=== PATIENT | male | born 1940 | race Caucasian/White ===

== ENCOUNTER 2018-12-14 22:50 | Inpatient (IN) | payer MEDICARE ==
[~2018-12-14] VITALS: Ht 182.9 cm; Wt 81.6 kg
[~2018-12-14 22:50] MED LIST: ALUM1POW3 PO; AMLO10TA7 PO; ATEN25TA PO; CHOL20004 PO; HYDR12.5 PO; IRBE75TA11 PO; LUTE1CAP3 PO; MAGN64TA9 PO; METF750T PO; MULT1CAP34 PO; OMEG1CAP55 PO; PERI2TAB2 PO; ROSU5TAB PO; UBID100C13 PO
--- NOTE | 2018-12-14 23:46 | NUR ---
DR. DELANEY AT BEDSIDE FOR MSE.
[2018-12-15] MEDS ORDERED: IPRATROPIUM BROMIDE 0.5 MG/2.5 ML NEBU NEB ONE
[2018-12-15] MEDS ORDERED: ALBUTEROL SULFATE 2.5 MG/3 ML NEBU NEB ONE
[2018-12-15] MEDS ORDERED: ACETYLCYSTEINE 10% 4ML VIAL NEB ONE
[2018-12-15 00:17] LABS: BASOPHILS % (AUTO) 0.9 % (0.0-2.0); EOSINOPHILS % (AUTO) 0.6 % (0.0-7.0); HEMATOCRIT 37.3 % (36.7-47.1); HEMOGLOBIN 12.5 g/dL (12.5-16.3); LYMPHOCYTES # (AUTO) 0.6 K/uL (20.0-40.0); LYMPHOCYTES % (AUTO) 11.7 % (20.5-51.5); MEAN CORPUSCULAR HEMOGLOBIN 29.4 uug (23.8-33.4); MEAN CORPUSCULAR HGB CONC 34 g/dL (32.5-36.3); MEAN CORPUSCULAR VOLUME 87.5 fL (73.0-96.2); MONOCYTES # (AUTO) 0.5 K/uL (2.0-10.0); MONOCYTES % (AUTO) 9.6 % (0.0-11.0); NEUTROPHILS # (AUTO) 4.2 K/uL (1.8-8.9); NEUTROPHILS % (AUTO) 77.2 % (38.5-71.5); PLATELET COUNT (AUTO) 178 K/uL (152-348); RED BLOOD CELL COUNT(AUTO) 4.26 MIL/uL (4.06-5.63); WHITE BLOOD COUNT (AUTO) 5.4 K/uL (3.6-10.2)
[2018-12-15] MEDS ORDERED: ACETYLCYSTEINE 10% 4ML VIAL ONE (00:26)
[2018-12-15] MEDS ORDERED: IPRATROPIUM BROMIDE 0.5 MG/2.5 ML NEBU ONE (00:27)
[2018-12-15] MEDS ORDERED: ALBUTEROL SULFATE 2.5 MG/3 ML NEBU ONE (00:27)
[2018-12-15 00:50] LABS: POTASSIUM 4.5 mmol/L (3.5-5.1)
[2018-12-15 01:03] LABS: BILIRUBIN,DIRECT 0.1 mg/dL (0.0-0.2); BILIRUBIN,TOTAL 0.4 mg/dL (0.2-1.0); TOTAL PROTEIN, SERUM 7.6 g/dL (6.4-8.2)
[2018-12-15] MEDS ORDERED: AZITHROMYCIN IV 500 MG in IV DEXTROSE 5% 250 ML IV ONE (02:45)
[2018-12-15] MEDS ORDERED: AZITHROMYCIN 500MG/ D5W 250ML IVPB **ER PYXIS ONLY IV ONE (02:48)
[2018-12-15] MEDS ORDERED: ACETYLCYSTEINE 10% 4ML VIAL NEB PRN (03:30)
[2018-12-15] MEDS ORDERED: ALBUTEROL SULFATE 2.5 MG/3 ML NEBU NEB PRN (03:30)
[2018-12-15] MEDS ORDERED: IPRATROPIUM BROMIDE 0.5 MG/2.5 ML NEBU NEB PRN (03:30)
[2018-12-15] MEDS ORDERED: predniSONE 20 MG TABLET PO ONE (03:30)
[2018-12-15] MEDS ORDERED: IV NS 1000 ML 1,000 ML IV PRN (03:30)
[2018-12-15] MEDS ORDERED: ACETAMINOPHEN 325 MG TABLET PO PRN (03:45)
[2018-12-15] MEDS ORDERED: MAGNESIUM HYDROXIDE 30 ML LIQUID UDC PO PRN (03:45)
[2018-12-15] MEDS ORDERED: Z GUARD REMEDY PASTE 57 GM TUBE TOP PRN (03:45)
[2018-12-15] MEDS ORDERED: HYDROCODONE/APAP 5-325MG TABLET PO PRN (03:45)
[2018-12-15] MEDS ORDERED: ONDANSETRON 4 MG/2 ML VIAL IV PRN (03:45)
[2018-12-15] MEDS ORDERED: predniSONE 20 MG TABLET ONE (03:47)
[2018-12-15] MEDS ORDERED: PERI4TAB PO (04:08)
[2018-12-15] MEDS ORDERED: LUTE1CAP3 PO (04:08)
[2018-12-15] MEDS ORDERED: AMLO10TA7 PO (04:08)
[2018-12-15] MEDS ORDERED: ATEN25TA PO (04:08)
[2018-12-15] MEDS ORDERED: METF-494 PO (04:08)
[2018-12-15] MEDS ORDERED: ALKA SELTZER PO (04:08)
[2018-12-15] MEDS ORDERED: CHOL100043 PO (04:08)
[2018-12-15] MEDS ORDERED: DOCU-141 PO (04:08)
[2018-12-15] MEDS ORDERED: IRBE1TAB31 (04:08)
[2018-12-15] MEDS ORDERED: LEVO25TA2 PO (04:08)
[2018-12-15] MEDS ORDERED: OMEG1CAP55 PO (04:08)
[2018-12-15] MEDS ORDERED: ROSU5TAB13 PO (04:08)
[2018-12-15] MEDS ORDERED: MULT-1119 PO (04:09)
[2018-12-15] MEDS ORDERED: RESV250C2 PO (04:09)
[2018-12-15] MEDS ORDERED: CYAN100T3 PO (04:09)
[2018-12-15] MEDS ORDERED: UBIQ100C3 PO (04:09)
--- NOTE | 2018-12-15 04:14 | NUR ---
Pt. admitted to M/S , under care of Dr. AGUIRRE Belongs List completed.
--- NOTE | 2018-12-15 05:30 | NUR ---
RECEIVED PATIENT VIA GURNEY FROM ER. PATIENT IS A/O X4. DENIES ANY PAIN UPON ADMISSION TO FLOOR. NO RESP. DISTRESS NOTED. VS WNL. H/L INTACT AND PATENT, NOTED TO LEFT AC #20 GAUGE. ORIENTED PATIENT TO ROOM AND CALL LIGHT. CALL LIGHT IN REACH. ALL NEEDS ATTENDED, WILL CONTINUE TO MONITOR AND ASSESS.
[2018-12-15 06:01] VITALS: BP 124/58
--- NOTE | 2018-12-15 08:00 | NUR ---
AWAKE ALERT AND ORIENTED X3, STILL WITH ON AND OFF DRY COUGH CONTINUE WITH IF ANTIBIOTICS
[2018-12-15] MEDS ORDERED: GUAIFENESIN LA 600 MG TABLET.SA PO ONE (09:58)
[2018-12-15] MEDS: methylPREDNISolone SOD SUCC 40 MG/ML VIAL IV ONE ×2 (10:16→10:23)
[2018-12-15 12:04] VITALS: BP 119/58
--- NOTE | 2018-12-15 13:00 | NUR ---
SEEN BY HOSPITALIST WITH DC ORDER
[2018-12-15] MEDS ORDERED: [UNRECOGNIZED DRUG - CODE] PO (15:21)
[2018-12-15 15:50] VITALS: BP 130/53
[2018-12-15] MEDS ORDERED: AZIT250T13 PO (15:50)
[2018-12-15] MEDS ORDERED: METH4TAB3 PO (15:50)
[2018-12-15] MEDS ORDERED: UBIQUINOL 100 MG PO SCH (17:00)
[2018-12-15] MEDS ORDERED: RESVERATROL 250 MG PO SCH (17:00)
[2018-12-15] MEDS ORDERED: PERINDOPRIL ERBUMINE PO SCH (17:00)
[2018-12-15] MEDS ORDERED: OMEGA 3 ACID ETHYL ESTERS PO SCH (17:00)
[2018-12-15] MEDS ORDERED: DOCUSATE SODIUM 100 MG CAPSULE PO SCH (17:00)
[2018-12-15] MEDS ORDERED: CHOLECALCIFEROL 1,000 UNIT TABLET PO SCH (17:00)
[2018-12-15] MEDS ORDERED: ATENOLOL 25 MG TABLET PO SCH (17:00)
--- NOTE | 2018-12-15 17:46 | NUR ---
discharged home stable accompanied by with rx and follow-up instruction.
[2018-12-15] MEDS ORDERED: Medication Not On Formulary EA (Rosuvastatin Calcium (Crestor) 5 MG) PO SCH (21:00)
[2018-12-15] MEDS ORDERED: ATORVASTATIN 10 MG TABLET PO SCH (21:00)
[2018-12-16] MEDS ORDERED: AZITHROMYCIN IV 250 MG in IV DEXTROSE 5% 250 ML IV SCH (02:00)
[2018-12-16] MEDS ORDERED: LEVOTHYROXINE SODIUM 75 MCG TABLET PO SCH (07:00)
[2018-12-16] MEDS ORDERED: HYDROCHLOROTHIAZIDE 12.5 MG CAPSULE PO SCH (09:00)
[2018-12-16] MEDS ORDERED: ZEAXANTHIN PO SCH (09:00)
[2018-12-16] MEDS ORDERED: LEVOTHYROXINE SODIUM 25 MCG TABLET PO SCH (09:00)
[2018-12-16] MEDS ORDERED: CYANOCOBALAMIN 1,000 MCG TABLET PO SCH (09:00)
[2018-12-16] MEDS ORDERED: MULTIVITAMINS,THERAPEUTIC TABLET PO SCH (09:00)
[2018-12-16] MEDS ORDERED: Medication Not On Formulary EA (Multivitamins (Multivitamin) 1 EACH) PO SCH (09:00)
[2018-12-16] MEDS ORDERED: MAGNESIUM CHLORIDE 64 MG TABLET.SA PO SCH (09:00)
[2018-12-16] MEDS ORDERED: AMLODIPINE 10 MG TABLET PO SCH (09:00)
[2018-12-16] MEDS ORDERED: CYANOCOBALAMIN 100 MCG TABLET PO SCH (09:00)
[2018-12-16] MEDS ORDERED: [UNRECOGNIZED DRUG - OTHER] PO SCH (09:00)
[2018-12-16] MEDS ORDERED: LUTEIN PO SCH (09:00)
== END 2018-12-15 17:45 | disposition home or self-care (01) | DRG 202 ==
LOC: ER 22:53 → MEDSURG3 12-15 05:05
PROVIDERS: ADMIT Nurse Practitioner Acute Care; ATTEND Registered Nurse
DX: J20.9 Acute bronchitis, unspecified (principal); T17.890A Other foreign object in other parts of respiratory tract causing asphyxiation, initial encounter; E87.1 Hypo-osmolality and hyponatremia; Z85.048 Personal history of other malignant neoplasm of rectum, rectosigmoid junction, and anus; Z92.21 Personal history of antineoplastic chemotherapy; Z96.643 Presence of artificial hip joint, bilateral; Z85.040 Personal history of malignant carcinoid tumor of rectum; Z79.899 Other long term (current) drug therapy; E03.9 Hypothyroidism, unspecified; Z79.890 Hormone replacement therapy; Z90.49 Acquired absence of other specified parts of digestive tract; E11.9 Type 2 diabetes mellitus without complications; E86.0 Dehydration; D64.9 Anemia, unspecified; E78.5 Hyperlipidemia, unspecified; I10 Essential (primary) hypertension; E78.00 Pure hypercholesterolemia, unspecified; J06.9 Acute upper respiratory infection, unspecified
CPT/HCPCS: 36415; 70030-TC; 70220; 70360; 71045; 85025; 87040; 87070; 93005; 94640; A4663; G0378; J0456; J2920; J3590; J7030; J7060; J7512